=== PATIENT | female | born 1940 | race African-American/Black ===

== ENCOUNTER 2017-09-22 15:07 | Observation (INO) | payer OTHER ==
[~2017-09-22] VITALS: Ht 157.5 cm; Wt 63.6 kg
[~2017-09-22 15:07] MED LIST: AMBIEN5 MG; AMLODIPINE BESYL5 MG PO; ASPIRIN81 M2 PO; ATORVASTATIN CA10 MG PO; CARVEDILOL12.5 MG PO; CEFTIN500 MG PO; CELEBREX200 MG PO; CELECOXIB200 MG PO; CLONAZEPAM1 MG; CLONAZEPAM1 MG PO; COREG12.5 M1 PO; Flagyl PO; HYDROCODON-ACE1 EAC5 PO; HYDROCODON-ACE1 EAC9 PO; LIPITOR10 MG PO; LISINOPRIL40 MG PO; LO-DOSE ASPIRIN81 M1 PO; LOMOTIL,LONO1 TABLET PO; Levaquin PO; MORPHINE SULFAT15 M1 PO; MUCINEX D ER T1 EACH PO; MUCINEX600 MG PO; NIFEDIAC CC60 MG PO; NITROSTAT0.4 MG SL; OXYCODONE HCL5 M1 PO; OXYCODONE HCL5 MG PO; PLAVIX75 MG PO; PRILOSEC40 MG PO; PROAIR HFA8.5 GM IH; Protonix PO; QUETIAPINE FUMA25 MG PO; SEROQUEL12.5 MG PO; VITAMIN D250000 UNIT PO; ZOLPIDEM TARTRA10 MG PO
[2017-09-22 16:04] LABS: EOSINOPHIL (%) 0.5 % (0-5); HEMATOCRIT 43.4 % (36.0-46.0); IMMATURE GRANULOCYTE (%) 0.3 % (0.0-0.7); INSTRUMENT ABS NEUTROPHIL CT 2.3 K/uL; LYMPHOCYTE COUNT 1.3 K/uL (1.0-2.8); MCH 29.5 PG (29.0-34.0); MCHC 32.7 G/DL (30.0-36.0); MEAN PLAT.VOLUME 10.6 uM^3 (9.5-12.4); MONOCYTE COUNT 0.2 K/uL (0-0.8); NEUTROPHIL (%) 59.5 % (45-76); NEUTROPHIL COUNT 2.3 K/uL (1.8-6.4); PLATELET COUNT 134 K/uL (156-360); RBC DIS.WIDTH-CV 13.8 % (11.8-14.6); RBC DIS.WIDTH-SD 45.8 % (39-53); RED BLOOD COUNT 4.82 M/uL (3.80-5.20); WHITE BLOOD COUNT 3.9 K/uL (4.1-10.2)
[2017-09-22 16:13] LABS: CHLORIDE 105 mEq/L (99-109); POTASSIUM 3.6 mEq/L (3.7-5.4); SODIUM 139 mEq/L (136-147)
[2017-09-22 16:15] LABS: GLUCOSE 111 mg/dL (70-99)
[2017-09-22 16:17] LABS: ANION GAP 9 MEQ/L (2-14); TOTAL BILIRUBIN 0.5 mg/dL (0.0-1.0)
[2017-09-22 16:19] LABS: ALKALINE PHOSPHATASE 83 IU/L (3-129); GFR ESTIMATE (CALCULATED) > 59 mL/min/
[2017-09-22 16:20] LABS: UREA NITROGEN (BUN) 20 mg/dL (9-23)
[2017-09-22 16:21] LABS: DIRECT BILIRUBIN 0.2 mg/dL (0.0-0.3)
[2017-09-22 16:22] LABS: LIPASE 11 U/L (1.0-51.0)
[2017-09-22 17:24] LABS: ERTH.SED.RATE 10 MM/HR (0-30)
[2017-09-22 18:00] LABS: ADD MIUA? NO; BILIRUBIN NEGATIVE; BLOOD NEGATIVE; COLOR COLORLESS ((YELLOW)); GLUCOSE (STRIP) NEGATIVE; KETONES NEGATIVE; LEUKOCYTES NEGATIVE; NITRITE NEGATIVE; PROTEIN (STRIP) NEGATIVE; SPECIFIC GRAVITY 1.013 (1.000-1.030); UROBILINOGEN 0.2 MG/DL (0.2-1.0)
[2017-09-22] MEDS ORDERED: ZOLPIDEM TARTRA10 MG PO (20:47)
[2017-09-22] MEDS ORDERED: SERTRALINE HCL25 MG PO (20:48)
[2017-09-22] MEDS ORDERED: FLONASE16 G1 BOTH NARES (20:48)
[2017-09-22] MEDS ORDERED: PANTOPRAZOLE SO20 MG PO (20:48)
[2017-09-22] MEDS ORDERED: CELEBREX200 MG PO (20:48)
[2017-09-22 22:41] LABS: AMPHETAMINE NEGATIVE (500 ng/mL); BARBITURATES NEGATIVE (200 ng/mL); BENZODIAZEPINES NEGATIVE (150 ng/mL); COCAINE NEGATIVE (150 ng/mL); INTERNAL CONTROLS VALID? YES; METHADONE NEGATIVE (200 ng/mL); METHAMPHETAMINE NEGATIVE (500 ng/mL); OPIATES (MORPHINE) PRESUMPTIVE POSITIVE (100 ng/mL); OXYCODONE NEGATIVE (100 ng/mL); PHENCYCLIDINE NEGATIVE (25 ng/mL); PROPOXYPHENE NEGATIVE (300 ng/mL); THC CANNABINOIDS NEGATIVE (50 ng/mL); TRICYCLIC ANTIDEPRESSANTS NEGATIVE (300 ng/mL)
[2017-09-22 22:42] LABS: ADD MEDTOX COMMENT Y
[2017-09-22 22:50] VITALS: BP 173/77
[2017-09-23 01:03] LABS: TROP-I INTERPRETATION NEGATIVE; TROPONIN-I < 0.01 ng/mL (0.0-0.30)
[2017-09-23 04:51] VITALS: BP 116/61
[2017-09-23 06:21] LABS: TROP-I INTERPRETATION NEGATIVE; TROPONIN-I < 0.01 ng/mL (0.0-0.30)
[2017-09-23 06:57] VITALS: BP 126/57
[2017-09-23 11:22] VITALS: BP 144/68
[2017-09-23 12:59] LABS: TROP-I INTERPRETATION NEGATIVE; TROPONIN-I < 0.01 ng/mL (0.0-0.30)
[2017-09-23 15:23] VITALS: BP 177/70
[2017-09-23] MEDS ORDERED: LIDODERM 5% P1 PATCH TD (15:54)
== END 2017-09-23 18:49 | disposition home or self-care (01) ==
LOC: EME 15:07 → EDOF 21:33 → ENRESERV 21:38 → 5WEST 22:33
PROVIDERS: Hospitalist; Physician Assistant
DX: R51 Headache (principal); H92.01 Otalgia, right ear; M25.552 Pain in left hip; R42 Dizziness and giddiness; I10 Essential (primary) hypertension; E78.5 Hyperlipidemia, unspecified; M19.90 Unspecified osteoarthritis, unspecified site; K76.89 Other specified diseases of liver; K57.90 Diverticulosis of intestine, part unspecified, without perforation or abscess without bleeding; Z79.82 Long term (current) use of aspirin; Z82.49 Family history of ischemic heart disease and other diseases of the circulatory system
CPT/HCPCS: 70450; 71020; 73502; 74177; 80048; 80076; 80306 90; 81003; 83605; 83690; 84484; 84999; 85025; 85027; 85651; 87493; 87506; 93005; 93880; 94640; 94640 76; 99202; 99281; 99285; G0378; G8978 GP CI; G8979 GP CH; G8980 GP CI; J1644; J3010; J7030

== ENCOUNTER 2018-05-12 18:30 | Observation (INO) | payer OTHER ==
[~2018-05-12] VITALS: Ht 157.5 cm; Wt 65.5 kg
[~2018-05-12 18:30] MED LIST changes: +FLONASE16 G1 BOTH NARES; +LIDODERM 5% P1 PATCH TD; +PANTOPRAZOLE SO20 MG PO; +SERTRALINE HCL25 MG PO
[2018-05-12 19:43] LABS: BASOPHIL (%) 0.3 % (0-1); EOSINOPHIL (%) 0.8 % (0-5); HEMATOCRIT 40.5 % (36.0-46.0); HEMOGLOBIN 13.4 G/DL (11.9-15.5); LYMPHOCYTE (%) 40.1 % (15-42); LYMPHOCYTE COUNT 1.5 K/uL (1.0-2.8); MCH 30.1 PG (29.0-34.0); MCHC 33.1 G/DL (30.0-36.0); MONOCYTE (%) 9.1 % (3-12); MONOCYTE COUNT 0.3 K/uL (0-0.8); NEUTROPHIL (%) 49.7 % (45-76); NEUTROPHIL COUNT 1.8 K/uL (1.8-6.4); PLATELET COUNT 116 K/uL (156-360); RBC DIS.WIDTH-CV 14.7 % (11.8-14.6); RBC DIS.WIDTH-SD 49.6 % (39-53); RED BLOOD COUNT 4.45 M/uL (3.80-5.20); WHITE BLOOD COUNT 3.6 K/uL (4.1-10.2)
[2018-05-12 19:57] LABS: ALBUMIN 4.3 g/dL (3.2-4.8)
[2018-05-12 19:58] LABS: CHLORIDE 109 mEq/L (99-109); POTASSIUM 4.1 mEq/L (3.7-5.4); SODIUM 144 mEq/L (136-147)
[2018-05-12 20:00] LABS: GLUCOSE 90 mg/dL (70-99); TOTAL PROTEIN 6.8 g/dL (6.4-8.3)
[2018-05-12 20:02] LABS: TOTAL BILIRUBIN 0.5 mg/dL (0.0-1.0)
[2018-05-12 20:03] LABS: ALKALINE PHOSPHATASE 80 IU/L (3-129)
[2018-05-12 20:04] LABS: GFR ESTIMATE (CALCULATED) > 59 mL/min/
[2018-05-12 20:05] LABS: AST (GOT) 23 IU/L (2-34); UREA NITROGEN (BUN) 17 mg/dL (9-23)
[2018-05-12 20:06] LABS: ALT (GPT) 19 IU/L (3-49)
[2018-05-12 20:11] LABS: TROP-I INTERPRETATION NEGATIVE; TROPONIN-I < 0.01 ng/mL (0.0-0.30)
[2018-05-12 21:46] LABS: D-DIMER ELISA < 150.00 ng/mLDDU (<230)
[2018-05-12] MEDS ORDERED: SERTRALINE HCL50 MG PO (21:47)
[2018-05-12] MEDS ORDERED: CELECOXIB200 MG PO (21:48)
[2018-05-12] MEDS ORDERED: ANTIVERT25 MG PO (21:49)
[2018-05-12 22:02] LABS: HDL CHOLESTEROL 82 MG/DL (Desirable>=50); LDL CHOLESTEROL 70 mg/dL (Desirable<100); NON-HDL CHOLESTEROL 88 mg/dL (Desirable<160); TOTAL CHOLESTEROL 170 mg/dL (Desirable<200); TRIGLYCERIDES 88 MG/DL (Normal: <150)
[2018-05-12 22:25] VITALS: BP 176/72
[2018-05-12 23:27] LABS: TROP-I INTERPRETATION NEGATIVE; TROPONIN-I < 0.01 ng/mL (0.0-0.30)
[2018-05-13 03:52] VITALS: BP 140/66
[2018-05-13 04:57] LABS: HEMATOCRIT 38.3 % (36.0-46.0); HEMOGLOBIN 12.7 G/DL (11.9-15.5); MCH 29.8 PG (29.0-34.0); MCHC 33.2 G/DL (30.0-36.0); MCV 89.9 FL (83-99); RBC DIS.WIDTH-CV 14.6 % (11.8-14.6); RBC DIS.WIDTH-SD 48.8 % (39-53); RED BLOOD COUNT 4.26 M/uL (3.80-5.20); WHITE BLOOD COUNT 3.8 K/uL (4.1-10.2)
[2018-05-13 05:21] LABS: TROP-I INTERPRETATION NEGATIVE; TROPONIN-I < 0.01 ng/mL (0.0-0.30)
[2018-05-13 05:24] LABS: CHLORIDE 109 MEQ/L (99-109); CREATININE 0.7 MG/DL (0.6-1.3); GFR ESTIMATE (CALCULATED) > 59 mL/min/; GLUCOSE 100 mg/dL (70-99); POTASSIUM 3.6 MEQ/L (3.7-5.4); SODIUM 142 MEQ/L (136-147); UREA NITROGEN (BUN) 17 mg/dL (9-23)
[2018-05-13 06:00] LABS: PLAT.SUFFICIENCY DECREASED; PLATELET COUNT 120 K/uL (156-360)
[2018-05-13 08:39] VITALS: BP 126/57
[2018-05-13 08:46] VITALS: BP 136/89
[2018-05-13 11:50] VITALS: BP 110/56
== END 2018-05-13 16:57 | disposition home or self-care (01) ==
LOC: EME 18:30 → EDOF 20:54 → 4SOUTH 20:54 → ENRESERV 20:55 → 4SOUTH 22:03
PROVIDERS: Emergency Medicine; Nurse Practitioner Adult Health
DX: R07.89 Other chest pain (principal); E87.6 Hypokalemia; I25.10 Atherosclerotic heart disease of native coronary artery without angina pectoris; I08.0 Rheumatic disorders of both mitral and aortic valves; I10 Essential (primary) hypertension; E78.5 Hyperlipidemia, unspecified; J44.9 Chronic obstructive pulmonary disease, unspecified; K21.9 Gastro-esophageal reflux disease without esophagitis; K22.2 Esophageal obstruction; Z98.890 Other specified postprocedural states; K57.90 Diverticulosis of intestine, part unspecified, without perforation or abscess without bleeding; M81.0 Age-related osteoporosis without current pathological fracture; Z90.710 Acquired absence of both cervix and uterus; Z88.5 Allergy status to narcotic agent; Z88.8 Allergy status to other drugs, medicaments and biological substances; Z87.891 Personal history of nicotine dependence
CPT/HCPCS: 71046; 80048; 80053; 80061; 83880; 84484; 85025; 85027; 85379; 93005; 99281; 99284; G0378; J1650